=== PATIENT | female | born 2005 | race Caucasian/White ===

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

== ENCOUNTER 2023-06-14 05:31 | Emergency (ER) | payer MEDICAID ==
[2023-06-14 06:03] VITALS: TEMP 98.2
--- NOTE | 2023-06-14 06:27 | ED ---
General Adult HPI - General Source: RN notes reviewed, old records reviewed <Chris Gregg - Last Filed: 06/14/23 10:37> - General Source: patient Mode of arrival: ambulatory Limitations: no limitations <Abdelrahman Dubon - Last Filed: 06/14/23 16:48> - General Chief complaint: Abdominal Pain Stated complaint: Left side pain Time Seen by Provider: 06/14/23 07:20 - History of Present Illness Initial comments: This is a 17-year-old female who presents emergency department stating that she started having left-sided flank pain around 7 or 8:00 last night. Patient states pain radiates to her side patient also was nauseous and has vomited. Patient states the pain is significantly intense. Patient states this is a 7 out of 10. Patient denies any diarrhea. Patient denies any dysuria hematuria urinary frequency. Patient denies any bleeding vaginally or any vaginal discharge. Patient has had no previous abdominal surgeries. Patient has had no pain similar to this in the past. (Chris Gregg) Quick note in triage: Patient presents with mother. She is states she is having bad sharp pains in her side. It started around 7 pm after she ate dinner. She states she has left side pain that radiates around to the side. She denies any pain with urination or fevers. The pain is constant at a 7/10. She has never similar pain before. No abdominal surgeries. No history of GI issues. No vaginal bleeding. She is nauseous. Verbally signed by Abdelrahman Dubon PAC 06/14/22 [id number] (Abdelrahman Dubon) - Related Data Home Medications Medication Instructions Recorded Confirmed Medroxyprogesterone Acetate 150 mg IM ONCE 02/20/22 02/20/22 [Depo-Provera] Previous Rx's Medication Instructions Recorded Nitrofurantoin Monohyd/M-Cryst 100 mg PO Q12HR #14 cap 06/14/23 [Macrobid] Allergies Allergy/AdvReac Type Severity Reaction Status Date / Time No Known Allergies Allergy Verified 06/14/23 05:39 Review of Systems ROS Other: All systems not noted in ROS Statement are negative. <Chris Gregg - Last Filed: 06/14/23 10:37> ROS Other: All systems not noted in ROS Statement are negative. <Abdelrahman Dubon - Last Filed: 06/14/23 16:48> ROS Statement: Those systems with pertinent positive or pertinent negative responses have been documented in the HPI. Past Medical History Additional Past Medical History / Comment(s): See Dr Parmar's H&P, dizziness and rapid heart rate History of Any Multi-Drug Resistant Organisms: None Reported Past Surgical History: No Surgical Hx Reported Past Anesthesia/Blood Transfusion Reactions: No Reported Reaction Additional Past Anesthesia/Blood Transfusion Reaction / Comment(s): never has had anesthesia Past Psychological History: No Psychological Hx Reported Smoking Status: Never smoker Past Alcohol Use History: None Reported Past Drug Use History: None Reported - Past Family History Mother Family Medical History: No Reported History <Abdelrahman Dubon - Last Filed: 06/14/23 16:48> General Exam <Chris Gregg - Last Filed: 06/14/23 10:37> Limitations: no limitations <Abdelrahman Dubon - Last Filed: 06/14/23 16:48> - General Exam Comments Initial Comments: GENERAL: Patient is well-developed and well-nourished. Patient is nontoxic and well- hydrated and is in moderate distress. ENT: Neck is soft and supple. No significant lymphadenopathy is noted. Oropharynx is clear. Moist mucous membranes. Neck has full range of motion without eliciting any pain. EYES: The sclera were anicteric and conjunctiva were pink and moist. Extraocular movements were intact and pupils were equal round and reactive to light. Eyelids were unremarkable. PULMONARY: Unlabored respirations. Good breath sounds bilaterally. No audible rales rhonchi or wheezing was noted. CARDIOVASCULAR: There is a regular rate and rhythm without any murmurs gallops or rubs. ABDOMEN: Soft and nontender with normal bowel sounds. SKIN: Skin is clear with no lesions or rashes and otherwise unremarkable. NEUROLOGIC: Patient is alert and oriented x3. Cranial nerves II through XII are grossly intact. Motor and sensory are also intact. Normal speech, volume and content. Symmetrical smile. MUSCULOSKELETAL: Normal extremities with adequate strength and full range of motion. No lower extremity swelling or edema. No calf tenderness. LYMPHATICS: No significant lymphadenopathy is noted PSYCHIATRIC: Normal psychiatric evaluation. (Chris Gregg) Course Vital Signs 06/14/23 06/14/23 06/14/23 05:39 09:12 11:17 Temperature 98.2 F 98.2 F Pulse Rate 97 89 62 Respiratory 16 18 16 Rate Blood Pressure 133/84 96/52 108/68 O2 Sat by Pulse 98 99 97 Oximetry Medical Decision Making - Lab Data Result diagrams: 06/14/23 05:42 06/14/23 05:42 <Chris Gregg - Last Filed: 06/14/23 10:37> - Lab Data Result diagrams: 06/14/23 05:42 06/14/23 05:42 <Abdelrahman Dubon - Last Filed: 06/14/23 16:48> - Medical Decision Making Was pt. sent in by a medical professional or institution (, PA, CREATIVE ART DIRECTOR, urgent care, hospital, or care home...) When possible be specific @ -No Did you speak to anyone other than the patient for history (EMS, parent, family, police, friend...)? What history was obtained from this source @ -No Did you review nursing and triage notes (agree or disagree)? Why? @ -I reviewed and agree with nursing and triage notes Were old charts reviewed (outside hosp., previous admission, EMS record, old EKG, old radiological studies, urgent care reports/EKG's, care home records)? Report findings @ -No old charts were reviewed Differential Diagnosis (chest pain, altered mental status, abdominal pain women, abdominal pain men, vaginal bleeding, weakness, fever, dyspnea, syncope, headache, dizziness, GI bleed, back pain, seizure, CVA, palpatations, mental health, musculoskeletal)? @ -Differential Abdominal Pain Women: Appendicitis, Cholecystitis, diverticulosis, ischemic bowel, pancreatitis, hepatitis, UTI, gastroenteritis, AAA, incarcerated hernia, bowel obstruction, constipation, inflammatory bowel, hepatitis, peptic ulcer disease, splenic infarction, perforated viscus, vulvitis, ovarian torsion, PID, kidney stone, placenta abruption, this is not meant to be an all-inclusive list EKG interpreted by me (3pts min.). @ -As above X-rays interpreted by me (1pt min.). @ -None done CT interpreted by me (1pt min.). @ -CT of the abdomen and pelvis shows corpus luteum cyst and physiologic fluid. U/S interpreted by me (1pt. min.). @ -Ultrasound shows a hemorrhagic corpus luteum cyst in the left ovary What testing was considered but not performed or refused? (CT, X-rays, U/S, labs)? Why? @ -None What meds were considered but not given or refused? Why? @ -None Did you discuss the management of the patient with other professionals (professionals i.e. , PA, CREATIVE ART DIRECTOR, lab, RT, psych nurse, social service director, immunology specialist, teacher, surveillance dual rate officer, case maker)? Give summary @ -No Was smoking cessation discussed for >3mins.? @ -No Was critical care preformed (if so, how long)? @ -No Were there social determinants of health that impacted care today? How? (Homelessness, low income, unemployed, alcoholism, drug addiction, transportation, low edu. Level, literacy, decrease access to med. care, shelter, rehab)? @ -No Was there de-escalation of care discussed even if they declined (Discuss DNR or withdrawal of care, Hospice)? DNR status @ -No What co-morbidities impacted this encounter? (DM, HTN, Smoking, COPD, CAD, Cancer, CVA, ARF, Chemo, Hep., AIDS, mental health diagnosis, sleep apnea, morbid obesity)? @ -None Was patient admitted / discharged? Hospital course, mention meds given and route, prescriptions, significant lab abnormalities, going to OR and other pertinent info. @ -Patient received fluids and Zofran pain medications and antibiotics for the urinary tract infection she was feeling considerably better and patient be discharged home Undiagnosed new problem with uncertain prognosis? @ -No Drug Therapy requiring intensive monitoring for toxicity (Heparin, Nitro, Insulin, Cardizem)? @ -No Were any procedures done? @ -No Diagnosis/symptom? @ -Urinary tract infection Acute, or Chronic, or Acute on Chronic? @ -Acute Uncomplicated (without systemic symptoms) or Complicated (systemic symptoms)? @ -Complicated Side effects of treatment? @ -No Exacerbation, Progression, or Severe Exacerbation? @ -No Poses a threat to life or bodily function? How? (Chest pain, [place], [place], pneumonia, PE, COPD, DKA, ARF, appy, cholecystitis, CVA, Diverticulitis, Homicidal, Suicidal, threat to staff... and all critical care pts) @ -No Diagnosis/symptom? @ -Hemorrhagic corpus luteum cyst Acute, or Chronic, or Acute on Chronic? @ -Acute Uncomplicated (without systemic symptoms) or Complicated (systemic symptoms)? @ -Complicated Side effects of treatment? @ -none Exacerbation, Progression, or Severe Exacerbation] @ -no Poses a threat to life or bodily function? @ -no (Chris Gregg) - Lab Data Lab Results 06/14/23 06/14/23 06/14/23 Range/Units 05:42 05:42 05:42 WBC 11.2 H (4.0-11.0) k/uL RBC 5.69 H (3.80-5.40) m/uL Hgb 16.5 H (11.4-16.0) gm/dL Hct 48.4 H (34.0-46.0) % MCV 85.0 (80.0-100.0) fL MCH 29.0 (25.0-35.0) pg MCHC 34.1 (31.0-37.0) g/dL RDW 12.0 (11.5-15.5) % Plt Count 218 (150-450) k/uL MPV 7.4 Neutrophils % 76 % Lymphocytes % 18 % Monocytes % 4 % Eosinophils % 1 % Basophils % 0 % Neutrophils # 8.5 H (1.3-7.7) k/uL Lymphocytes # 2.0 (1.0-4.8) k/uL Monocytes # 0.4 (0-1.0) k/uL Eosinophils # 0.1 (0-0.7) k/uL Basophils # 0.0 (0-0.2) k/uL Sodium (137-145) mmol/L Potassium (3.5-5.1) mmol/L Chloride (98-107) mmol/L Carbon Dioxide (22-30) mmol/L Anion Gap mmol/L BUN (7-17) mg/dL Creatinine (0.52-1.04) mg/dL Est GFR (CKD-EPI)AfAm (>60 ml/min/1.73 sqM) Est GFR (CKD-EPI)NonAf (>60 ml/min/1.73 sqM) Glucose (74-99) mg/dL Calcium (8.4-10.2) mg/dL Total Bilirubin (0.2-1.3) mg/dL AST (14-36) U/L ALT (4-34) U/L Alkaline Phosphatase (38-126) U/L Total Protein (6.3-8.2) g/dL Albumin (3.5-5.0) g/dL Amylase (30-110) U/L Lipase (23-300) U/L Urine Color Yellow Urine Appearance Cloudy H (Clear) Urine pH 6.0 (5.0-8.0) Ur Specific [place] 1.032 (1.001-1.035) Urine Protein Trace H (Negative) Urine Glucose (UA) Negative (Negative) Urine Ketones Negative (Negative) Urine Blood Trace H (Negative) Urine Nitrite Negative (Negative) Urine Bilirubin Negative (Negative) Urine Urobilinogen <2.0 (<2.0) mg/dL Ur Leukocyte Esterase Large H (Negative) Urine RBC 5 (0-5) /hpf Urine WBC 48 H (0-5) /hpf Ur Squamous Epith Cells 5 H (0-4) /hpf Urine Bacteria Rare H (None) /hpf Urine Mucus Occasional H (None) /hpf Urine HCG, Qual Not Detected (Not Detectd) Serum Alcohol mg/dL 06/14/23 06/14/23 Range/Units 05:42 08:03 WBC (4.0-11.0) k/uL RBC (3.80-5.40) m/uL Hgb (11.4-16.0) gm/dL Hct (34.0-46.0) % MCV (80.0-100.0) fL MCH (25.0-35.0) pg MCHC (31.0-37.0) g/dL RDW (11.5-15.5) % Plt Count (150-450) k/uL MPV Neutrophils % % Lymphocytes % % Monocytes % % Eosinophils % % Basophils % % Neutrophils # (1.3-7.7) k/uL Lymphocytes # (1.0-4.8) k/uL Monocytes # (0-1.0) k/uL Eosinophils # (0-0.7) k/uL Basophils # (0-0.2) k/uL Sodium 142 (137-145) mmol/L Potassium 3.9 (3.5-5.1) mmol/L Chloride 103 (98-107) mmol/L Carbon Dioxide 24 (22-30) mmol/L Anion Gap 15 mmol/L BUN 10 (7-17) mg/dL Creatinine 0.79 (0.52-1.04) mg/dL Est GFR (CKD-EPI)AfAm >90 (>60 ml/min/1.73 sqM) Est GFR (CKD-EPI)NonAf >90 (>60 ml/min/1.73 sqM) Glucose 115 H (74-99) mg/dL Calcium 10.1 (8.4-10.2) mg/dL Total Bilirubin 0.6 (0.2-1.3) mg/dL AST 22 (14-36) U/L ALT 17 (4-34) U/L Alkaline Phosphatase 92 (38-126) U/L Total Protein 7.9 (6.3-8.2) g/dL Albumin 4.9 (3.5-5.0) g/dL Amylase 86 (30-110) U/L Lipase 164 (23-300) U/L Urine Color Urine Appearance (Clear) Urine pH (5.0-8.0) Ur Specific [place] (1.001-1.035) Urine Protein (Negative) Urine Glucose (UA) (Negative) Urine Ketones (Negative) Urine Blood (Negative) Urine Nitrite (Negative) Urine Bilirubin (Negative) Urine Urobilinogen (<2.0) mg/dL Ur Leukocyte Esterase (Negative) Urine RBC (0-5) /hpf Urine WBC (0-5) /hpf Ur Squamous Epith Cells (0-4) /hpf Urine Bacteria (None) /hpf Urine Mucus (None) /hpf Urine HCG, Qual (Not Detectd) Serum Alcohol <10 mg/dL Disposition Is patient prescribed a controlled substance at d/c from ED?: No Time of Disposition: 10:41 <Chris Gregg - Last Filed: 06/14/23 10:37> <Abdelrahman Dubon - Last Filed: 06/14/23 16:48> Clinical Impression: Corpus luteum cyst hemorrhage, Urinary tract infection Disposition: HOME SELF-CARE Instructions (If sedation given, give patient instructions): Ovarian Cyst (ED), Urinary Tract Infection in Women (ED) Prescriptions: Nitrofurantoin Monohyd/M-Cryst [Macrobid] 100 mg PO Q12HR #14 cap Referrals: Karon Ashton MD [STAFF PHYSICIAN] - 1-2 days
[2023-06-14 07:26] LABS: Basophils % (A) 0 %; Eosinophils # (A) 0.1 k/uL (0-0.7); Eosinophils % (A) 1 %; HCT 48.4 % (34.0-46.0); HGB 16.5 gm/dL (11.4-16.0); Lymphocytes % (A) 18 %; MCHC 34.1 g/dL (31.0-37.0); Mean Platelet Volume 7.4; Monocytes # (A) 0.4 k/uL (0-1.0); Monocytes % (A) 4 %; Neutrophils # (A) 8.5 k/uL (1.3-7.7); Neutrophils % (A) 76 %; Platelet Count 218 k/uL (150-450); RBC 5.69 m/uL (3.80-5.40); WBC 11.2 k/uL (4.0-11.0)
[2023-06-14 07:31] LABS: Appearance,Urine Cloudy (Clear); Bacteria,Urine Rare /hpf; Bilirubin,Urine Negative (Negative); Blood,Urine Trace (Negative); Color,Urine Yellow; Glucose,Urine (UA) Negative (Negative); Ketones,Urine Negative (Negative); Leukocyte Esterase,Urine Large (Negative); Mucus,Urine Occasional /hpf; Nitrite,Urine Negative (Negative); Protein,Urine Trace (Negative); RBC,Urine 5 /hpf (0-5); Specific Gravity,Urine 1.032 (1.001-1.035); Squamous Epithelial Cell,Urine 5 /hpf (0-4); Urobilinogen,Urine <2.0 mg/dL (<2.0); WBC,Urine 48 /hpf (0-5)
[2023-06-14 07:38] LABS: ALT 17 U/L (4-34); AST 22 U/L (14-36); African American GFR (CKD) >90 (>60 ml/min/1.73 sqM); Albumin 4.9 g/dL (3.5-5.0); Alkaline Phosphatase 92 U/L (38-126); Amylase 86 U/L (30-110); Anion Gap 15 mmol/L; Blood Urea Nitrogen 10 mg/dL (7-17); Calcium 10.1 mg/dL (8.4-10.2); Carbon Dioxide 24 mmol/L (22-30); Chloride 103 mmol/L (98-107); Glucose 115 mg/dL (74-99); Lipase 164 U/L (23-300); Non-African American GFR(CKD) >90 (>60 ml/min/1.73 sqM); Potassium 3.9 mmol/L (3.5-5.1); Sodium 142 mmol/L (137-145); Total Bilirubin 0.6 mg/dL (0.2-1.3); Total Protein 7.9 g/dL (6.3-8.2)
[2023-06-14] MEDS ORDERED: KETOROLAC 15 MG/ML 1 ML VIAL IVP STA (07:38)
[2023-06-14] MEDS ORDERED: ONDANSETRON 4 MG/2 ML VIAL IVP STA ×2 (07:54→07:57)
[2023-06-14] MEDS ORDERED: SODIUM CHLORIDE 0.9% 500 ML 500 ML IV ONE (07:57)
[2023-06-14] MEDS ORDERED: SODIUM CHLORIDE 0.9% 1,000 ML IV ONE (07:57)
[2023-06-14] MEDS ORDERED: HYDROmorphone 0.5 MG/0.5 ML SYRINGE IVP STA (08:49)
--- NOTE | 2023-06-14 09:06 | US ---
EXAMINATION TYPE: US transvaginal plus Dopplers DATE OF EXAM: 06/14/2023 COMPARISON: NONE CLINICAL INDICATION: Female, 17 years old with history of Left-sided pelvic pain; LLQ pain that start ed last night TECHNIQUE: Transvaginal (TV). Transvaginal sonographic images of the pelvis were acquired. Date of LMP: 3-4 yrs ago- pt on Depo shot EXAM MEASUREMENTS: Uterus: 6.8 x 2.5 x 3.5 cm Endometrial Stripe: 0.4 cm Right Ovary: 3.5 x 2.6 x 2.9 cm for a volume of 13.6 mL Left Ovary: 4.4 x 3.3 x 3.6 cm for a volume of 27.3 mL 1. Uterus: Anteverted and otherwise wnl 2. Endometrium: wnl 3. Right Ovary: wnl 4. Left Ovary: Plan Checker notes: Larger in size when compared to right ovary, however blood flow is visualized- ill-defined isoechoic area within left ovary= 2.6 x 2.8 x 2.5 cm ?mass vs. other etiolo gy Spectral, color and waveform doppler imaging shows good arterial and venous flow within the ovaries ; there is no evidence for ovarian torsion. 5. Bilateral Adnexa: wnl 6. Posterior cul-de-sac: wnl IMPRESSION: 1. Asymmetrically larger left ovary suspected to be due to the presence of a 2.8 cm hemorrhagic corpu s luteum. Follow-up in 6-8 weeks to ensure resolution. 2. No Doppler evidence for ovarian torsion on either side. Short interval follow-up can be performed if worsening pain.
--- NOTE | 2023-06-14 10:14 | CT ---
EXAMINATION TYPE: CT abdomen pelvis wo con DATE OF EXAM: 06/14/2023 COMPARISON: Ultrasound pelvis same date HISTORY: 17 year-old female left lower quadrant PAIN CT DLP: 324.1 mGycm. Automated exposure control for dose reduction was used. TECHNIQUE: Contiguous axial scanning of the abdomen and pelvis without IV contrast. Coronal and sagit gelacio reconstructions performed. FINDINGS: LUNG BASES: No significant abnormality is appreciated. LIVER/GB: No significant abnormality is appreciated. PANCREAS: No significant abnormality is seen. SPLEEN: No significant abnormality is seen. ADRENALS: No significant abnormality is seen. KIDNEYS: No significant abnormality is seen. BOWEL: Cecum hangs low down in the pelvis. Appendix not clearly identified. [id number] stool wi thin the cecum. No pericolic inflammatory change. No dilated small bowel or free air. LYMPH NODES: No greater than 1cm abdominal or pelvic lymph nodes are appreciated. PELVIS: Bladder distended. Uterus anteverted. Mild pelvic free fluid. Both ovaries are visualized. Le ft ovary measures 4.4 x 4.2 x 2.4 cm for a volume of of 22.2 mL, for line to mildly enlarged but with a 3.2 x 1.6 cm cystic structure within. OSSEOUS STRUCTURES: Mild degenerative disc disease lower lumbar spine with mild disc space narrowing and disc bulging. Posterior disc bulges impress on the ventral thecal sac at both L4-L5 and L5-S1. Mi ldly narrowing the spinal canal at L4-L5. OTHER: No significant additional abnormality is seen. IMPRESSION: 1. A 3.2 cm cystic structure of the left ovary, probably a dominant follicle or functional cyst. Ref er to pelvic ultrasound report earlier today for further details and recommendations. 2. Mild pelvic free fluid likely physiologic. 3. Mild degenerative disc disease lower lumbar spine. Bulging disc at L4-L5 mildly narrows the spina l canal.
[2023-06-14] MEDS ORDERED: cefTRIAXone IN SWFI 1,000 MG/10 ML SYRINGE IVP STA (10:25)
[2023-06-14 11:24] VITALS: BP 108/68; PULSE 62; RESP 16
[2023-06-16 13:56] LABS: C. trachomatis,PCR Negative (Negative)
[2023-06-16 14:07] LABS: N. gonorrhoeae,PCR Negative (Negative)
== END 2023-06-14 11:38 | disposition home or self-care (01) ==
LOC: EC 05:31
DX: N83.12 Corpus luteum cyst of left ovary (principal); N39.0 Urinary tract infection, site not specified
CPT/HCPCS: 99284 ×2; 96374 ×2; 96375 ×4; 96361 ×2; 36415; 80053; 82150; 83690; 85025; 81001; 81025; 87491; 87591; 80320; 87086; 93975; 76830; 74176; J2405; J0696; J1885; J1170

== ENCOUNTER → 2023-09-10 | Outpatient (CLI) | payer MEDICAID ==
[2023-09-10 15:44] LABS: ALT 18 U/L (8-44); AST 22 U/L (13-35); Albumin 4.8 g/dL (3.8-4.9); Alkaline Phosphatase 94 U/L (41-126); Blood Urea Nitrogen 13.3 mg/dL (9.0-27.0); Calcium 10.1 mg/dL (8.7-10.3); Chloride 107 mmol/L (96-109); Chol/HDL Ratio 3.25 Ratio; Globulin 2.4 g/dL (1.6-3.3); Glucose 96 mg/dL (70-110); LDL Cholesterol,Calculated 106.9 mg/dL (0.0-131.0); Potassium 4.1 mmol/L (3.5-5.5); Sodium 142 mmol/L (135-145); Total Bilirubin 0.7 mg/dL (0.3-1.2); Total Protein 7.2 g/dL (6.2-8.2)
[2023-09-10 15:45] LABS: HCG,Quantitative Serum <3.0 mIU/mL (0.0-6.0)
[2023-09-10 15:56] LABS: Basophils # (A) 0.02 X 10*3/uL (0.00-0.10); Basophils % (A) 0.3 %; Eosinophils # (A) 0.19 X 10*3/uL (0.04-0.35); Eosinophils % (A) 3.3 %; HCT 46.7 % (37.2-46.3); HGB 15.9 g/dL (12.0-15.0); Lymphocytes # (A) 2.21 X 10*3/uL (0.90-5.00); Lymphocytes % (A) 38.2 %; MCH 28.5 pg (27.0-32.0); MCV 83.7 FL (80.0-97.0); Mean Platelet Volume 9.9 FL (9.5-12.2); Monocytes # (A) 0.38 X 10*3/uL (0.20-1.00); Monocytes % (A) 6.6 %; NRBC Per 100 WBC 0 X 10*3/uL (0.00-0.01); Neutrophils # (A) 2.97 X 10*3/uL (1.80-7.70); Neutrophils % (A) 51.4 %; Platelet Count 247 X 10*3/uL (140-440); RBC 5.58 X 10*6/uL (4.10-5.20); RDW 11.9 % (11.5-14.5); WBC 5.78 X 10*3/uL (4.50-10.00)
== END | disposition home or self-care (01) ==
LOC: LABWHC1 10:50
PROVIDERS: ATTEND Family Medicine
DX: Z00.01 Encounter for general adult medical examination with abnormal findings (principal); Z13.1 Encounter for screening for diabetes mellitus; L70.0 Acne vulgaris; Z79.899 Other long term (current) drug therapy
CPT/HCPCS: 36415; 80053; 80061; 83036; 84443; 84702; 85025

== ENCOUNTER → 2023-11-11 | Outpatient (CLI) | payer MEDICAID ==
[2023-11-11 15:15] LABS: Basophils # (A) 0.01 X 10*3/uL (0.00-0.10); Basophils % (A) 0.2 %; Eosinophils % (A) 1.6 %; Lymphocytes % (A) 27.6 %; MCH 28.4 pg (27.0-32.0); MCV 83.3 FL (80.0-97.0); Monocytes # (A) 0.39 X 10*3/uL (0.20-1.00); Monocytes % (A) 6.3 %; NRBC Per 100 WBC 0 X 10*3/uL (0.00-0.01); Neutrophils # (A) 3.93 X 10*3/uL (1.80-7.70); Platelet Count 238 X 10*3/uL (140-440); RBC 5.64 X 10*6/uL (4.10-5.20); WBC 6.15 X 10*3/uL (4.50-10.00)
[2023-11-11 15:55] LABS: ALT 15 U/L (8-44); AST 23 U/L (13-35); HCG,Quantitative Serum <3.0 mIU/mL (0.0-6.0)
== END | disposition home or self-care (01) ==
LOC: LABWHC1 10:26
PROVIDERS: ATTEND Dermatology MOHS-Micrographic Surgery
DX: L70.0 Acne vulgaris (principal)
CPT/HCPCS: 36415; 82465; 84450; 84460; 84478; 84702; 85025